=== PATIENT | male | born 1945 | race Caucasian/White ===

== ENCOUNTER 2024-08-28 14:50 | Emergency (ER) | payer MEDICARE ==
[~2024-08-28] VITALS: Ht 172.7 cm; Wt 103.0 kg
[~2024-08-28 14:50] MED LIST: AMLODIPINE5 MG PO; FLOMAX0.4 M1 PO; LOSARTAN POT50 MG PO; OMEPRAZOLE20 M2 PO; PERCOCET 10/31 COMBO PO; PERCOCET 5/325M1 TAB PO
[2024-08-28 16:22] VITALS: BP 194/117
[2024-08-28 16:25] VITALS: BP 190/100
[2024-08-28 16:31] VITALS: BP 204/98
[2024-08-28] MEDS ORDERED: KETOROLAC TROMETHAMINE 15 MG/ML SDV IV ONE (16:35)
[2024-08-28] MEDS ORDERED: HYDROcodone 7.5 MG/Acetaminophen 325 MG/COMBO PO ONE (16:35)
[2024-08-28] MEDS ORDERED: diazePAM 10 MG/2 ML VIAL IV ONE (16:35)
[2024-08-28 17:11] LABS: BASO% 0.4 % (0-3); EOS% 0.6 % (0-8); HEMATOCRIT 48.2 % (39.0-50.0); IMMATURE GRANULOCYTES 0.3 % (0.0-5.0); LYMPH% 12.2 % (15-41); MEAN CELL VOLUME 99.8 fL CALC (80.0-100.0); MEAN CORPUSCULAR HGB 33.1 pG CALC (26.0-32.0); MEAN CORPUSCULAR HGB CONC 33.2 g/dL CAL (32.0-36.0); MONO% 12.2 % (2-13); NEUT# 7.7 thou/uL (1.82-7.42); NEUT% 74.3 % (42-76); RED BLOOD COUNT 4.83 mill/uL (4.70-6.10); RED CELL DISTRI WIDTH 13.7 % (11.5-15.5)
[2024-08-28 17:36] LABS: ALBUMIN 4.9 g/dL (3.2-5.0); BILIRUBIN, TOTAL 2.5 mg/dL (0.2-1.3); POTASSIUM 4.5 mmol/l (3.5-5.1); TOTAL PROTEIN 8.7 g/dL (6.3-8.2)
[2024-08-28] MEDS ORDERED: PREDNISONE10 MG PO (18:03)
[2024-08-28] MEDS ORDERED: DIAZEPAM5 MG PO (18:03)
[2024-08-28] MEDS ORDERED: NAPROXEN500 MG PO (18:03)
[2024-08-28] MEDS ORDERED: TRAMADOL HYDROC50 M1 PO (18:03)
[2024-08-28 18:24] VITALS: BP 153/87
== END 2024-08-28 18:36 | disposition home or self-care (01) ==
LOC: ED 14:50
PROVIDERS: Nurse Practitioner
DX: M43.6 Torticollis (principal); I10 Essential (primary) hypertension
CPT/HCPCS: J1100; J1885; J3360